=== PATIENT | female | born 1995 | race Caucasian/White ===

== ENCOUNTER 2017-01-06 17:40 | Emergency (ER) | payer OTHER, BC ==
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
[2017-01-06 20:49] VITALS: BP 105/67; PULSE 66; RESP 16; TEMP 98.1; O2SAT 95
== END 2017-01-06 20:48 | disposition home or self-care (01) ==
DX: S16.1XXA Strain of muscle, fascia and tendon at neck level, initial encounter (principal); V89.2XXA Person injured in unspecified motor-vehicle accident, traffic, initial encounter